=== PATIENT | male | born 1995 | race African-American/Black ===

== ENCOUNTER 2016-07-06 21:26 | Emergency (ER) | payer OTHER ==
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
[2016-07-06 23:25] LABS: ANION GAP 12 (5-19); BLOOD UREA NITROGEN 11 mg/dL (7-20); CALCIUM 10.2 mg/dL (8.4-10.2); CARBON DIOXIDE 28 mmol/L (22-30); CHLORIDE 105 mmol/L (98-107); CREATININE RESULT 0.72 mg/dL (0.52-1.25); GLUCOSE 70 mg/dL (75-110); POTASSIUM 4.1 mmol/L (3.6-5.0); SODIUM 144.9 mmol/L (137-145)
[2016-07-06 23:28] LABS: ALCOHOL < 10 mg/dL (NONE DETECTED)
[2016-07-07 02:37] VITALS: BP 109/79
== END 2016-07-07 02:37 | disposition home or self-care (01) ==
LOC: ER 21:26
DX: S09.90XA Unspecified injury of head, initial encounter (principal); R10.9 Unspecified abdominal pain; R07.9 Chest pain, unspecified; R41.0 Disorientation, unspecified; V87.7XXA Person injured in collision between other specified motor vehicles (traffic), initial encounter
CPT/HCPCS: 36415; 70450; 71260; 72125; 74177; 80048; 80307; 99285